=== PATIENT | male | born 1970 | race Caucasian/White ===

== ENCOUNTER 2018-09-29 16:46 | Emergency (ER) | payer BC, OTHER ==
[2018-09-29] MEDS ORDERED: Ketorolac 60 MG/2 ML SDV IM ONE (17:39)
--- NOTE | 2018-09-29 17:41 | EDM.PDOC ---
ED HPI GENERAL MEDICAL PROBLEM - General Chief Complaint: Lower Extremity Injury/Pain Stated Complaint: TWISTED LEFT KNEE Time Seen by Provider: 09/29/18 17:35 Source of Information: Reports: Patient, Family, RN Notes Reviewed History Limitations: Reports: No Limitations - History of Present Illness INITIAL COMMENTS - FREE TEXT/NARRATIVE: 48-year-old gentleman presents emergency department today complaint of left knee pain, he thinks he may have injured himself at work possibly twisting on the last step while carrying some boxes. He knee is now warm to the touch she does have a significant amount of edema around the knee very difficult for him to bear weight and it is painful - Related Data Allergies Allergy/AdvReac Type Severity Reaction Status Date / Time No Known Allergies Allergy Verified 09/29/18 17:40 Home Meds: Home Meds NK [No Known Home Meds] 09/29/18 [History] Past Medical History - Past Health History Medical/Surgical History: Denies Medical/Surgical History Social & Family History - Tobacco Use Smoking Status *Q: Never Smoker Review of Systems - Review of Systems Review Of Systems: See Below Musculoskeletal: Reports: Joint Pain (Left knee) Skin: Reports: Pallor, Other (Edema) ED EXAM, GENERAL - Physical Exam Exam: See Below Free Text/Narrative:: Examination left knee he has limited range of motion secondary to pain but will not tolerate any type of exam he does have marked effusion around the knee it is warm to the touch pedal pulses +2 Exam Limited By: No Limitations General Appearance: Alert, WD/WN, No Apparent Distress ED TRAUMA EXTREMITY PROCEDURES - Additional/Other Procedure(s) Other (Free Text) Procedure(s): Preoperative diagnosis left knee effusion Postoperative diagnosis blood-tinged synovial fluid Surgeon Tk OfficerMD Verbal consent was obtained prior to procedure risks and benefits were discussed patient is in agreement and wishes to proceed. Anesthesia etholinechloride spray Estimated blood loss 5 mL Specimens 35 mL of fluid Summary procedure: Timeout was performed prior to initiation procedure identified correct site, correct patient and correct procedure. Patient was seated on the bedside sophie was identified over the joint effusion lateral aspect. Area was anesthetized with Betadine 3, next ethylene chloride spray was used to anesthetize the area, an 18-gauge needle was then inserted just underneath the skin to drain the fluid initially 5 mL of blood consistent with the traumatic effusion followed by 35 mL of fluid, Band-Aid was placed over the wound this was done in a sterile technique Complications none apparent Disposition plan is discharge home Course - Vital Signs Last Recorded V/S: Last Vital Signs Temp 97.0 F 09/29/18 17:44 Pulse 91 09/29/18 17:44 Resp 16 09/29/18 17:44 BP 133/96 H 09/29/18 17:44 Pulse Ox 96 09/29/18 17:44 - Orders/Labs/Meds Orders: Active Orders 24 hr Category Date Time Status CELL COUNT,BODY FLUID [BF] Stat Lab 09/29/18 19:33 Ordered CULTURE BODY FLUID + SMEAR [RM] Routine Lab 09/29/18 19:33 Results CULTURE BODY FLUID + SMEAR [RM] Stat Lab 09/29/18 19:33 Ordered Meds: Medications Discontinued Medications Generic Name Dose Route Start Last Admin Trade Name Samanq PRN Reason Stop Dose Admin Ketorolac Tromethamine 60 mg 09/29/18 17:39 09/29/18 17:49 Toradol IM 09/29/18 17:40 60 mg ONETIME ONE Administration Departure - Departure Time of Disposition: 20:22 Disposition: Home, Self-Care 01 Condition: Fair Clinical Impression: Effusion, left knee Left knee pain Qualifiers: Chronicity: acute Qualified Code(s): M25.562 - Pain in left knee - Discharge Information Instructions: Knee Effusion, [id number] Referrals: PCP,None [Primary Care Provider] - Forms: ED Department Discharge Additional Instructions: Watch for signs of infection, use Tylenol Motrin as needed for pain control, orthopedics will call you with an appointment time on Monday - My Orders Last 24 Hours: My Active Orders 09/29/18 19:33 CELL COUNT,BODY FLUID [BF] Stat CULTURE BODY FLUID + SMEAR [RM] Routine CULTURE BODY FLUID + SMEAR [RM] Stat - Assessment/Plan Last 24 Hours: My Active Orders 09/29/18 19:33 CELL COUNT,BODY FLUID [BF] Stat CULTURE BODY FLUID + SMEAR [RM] Routine CULTURE BODY FLUID + SMEAR [RM] Stat Plan: Assessment Acuity = acute Site and laterality = left knee joint effusion Etiology = secondary to trauma Manifestations = none Location of injury = Home Lab values = x-ray showed no acute process, joint aspiration fluid pending Plan Called discussed case with orthopedics on-call at 2019 recommended RICE at this time no antibiotics watch for fevers or increasing pain at that time would recommend further evaluation, keep follow-up appointment with orthopedics in clinic This note was dictated using [employer] voice recognition software please call with any questions on syntax or grammar.
--- NOTE | 2018-09-29 18:15 | CRLCR ---
INDICATION: Knee pain, twist injury TECHNIQUE: Knee radiograph 3 views left COMPARISON: None FINDINGS: Bone: No acute fractures or aggressive bone lesions are identified. Joint: The joint spaces of the medial, lateral, and patellofemoral compartments are unremarkable. No significant knee effusion is seen. Soft tissue: Severe anterior swelling and edema noted. No radiopaque foreign bodies are seen. IMPRESSION: 1. No acute osseous injuries or abnormalities are noted. Dictated by: Javi Pompa MD @ 09/29/2018 18:14:08 (Electronically Signed)
== END 2018-09-29 20:40 | disposition home or self-care (01) ==
LOC: JP.ED 16:46
DX: M25.462 Effusion, left knee (principal)
CPT/HCPCS: 20610; 73562; 87070; 87077; 87186; 87205; 89050; 96372; 99283; J1885

== ENCOUNTER 2018-10-01 06:53 | Inpatient (IN) | payer BC ==
[2018-10-01] MEDS ORDERED: Sodium Chloride 0.9% 10 ML Syringe FLUSH PRN ×2 (07:27→07:28)
[2018-10-01] MEDS ORDERED: Ondansetron 4 MG/2 ML SDV IVPUSH ONE (07:30)
[2018-10-01] MEDS ORDERED: Lactated Ringers 1,000 ML IV SCH ×2 (07:30→12:22)
[2018-10-01] MEDS ORDERED: cefTAZidime Pentahydrate 2 GM in Sodium Chloride 0.9% 50 ML IV SCH (07:30)
--- NOTE | 2018-10-01 07:32 | EDM.PDOC ---
ED HPI GENERAL MEDICAL PROBLEM - General Chief Complaint: Lower Extremity Injury/Pain Stated Complaint: left knee pain red and painful Time Seen by Provider: 10/01/18 07:22 Source of Information: Reports: Patient, Family, RN Notes Reviewed History Limitations: Reports: No Limitations - History of Present Illness INITIAL COMMENTS - FREE TEXT/NARRATIVE: 48-year-old gentleman presents emergency department today with complaint of painful red knee. I have the opportunity see him 2 days prior where he described an injury possibly stepping off the last step twisting injury he had a fusion on the knee x-ray at the time was negative Was bloody but did show about 13 wbc's with 90% polys. Discussed case with orthopedics because the white cell was less than 50,000 elected not to start antibiotics at this time and do watchful waiting with follow-up with orthopedics this week. I did well 2 days ago unfortunately last night developed chills no fever and the redness increased around the knee as well as the effusion Left Knee Pain Score (Numeric/FACES): 7 - Related Data Allergies Allergy/AdvReac Type Severity Reaction Status Date / Time No Known Allergies Allergy Verified 10/01/18 07:08 Home Meds: Home Meds Acetaminophen [Tylenol Extra Strength] 1,000 mg PO ASDIRECTED 10/01/18 [History] Ibuprofen [Motrin] 800 mg PO DAILY 10/01/18 [History] Past Medical History Musculoskeletal History: Reports: Fracture - Past Surgical History Musculoskeletal Surgical History: Reports: Other (See Below) Other Musculoskeletal Surgeries/Procedures:: tendon rupture Social & Family History - Tobacco Use Smoking Status *Q: Never Smoker - Alcohol Use Days Per Week of Alcohol Use: 2 Number of Drinks Per Day: 3 Total Drinks Per Week: 6 - Recreational Drug Use Recreational Drug Use: No Review of Systems - Review of Systems Review Of Systems: See Below Constitutional: Reports: Chills. Denies: Fever Respiratory: Reports: No Symptoms Cardiovascular: Reports: No Symptoms GI/Abdominal: Reports: Nausea Musculoskeletal: Reports: Joint Pain Skin: Reports: Pallor, Rash, Erythema ED EXAM, GENERAL - Physical Exam Exam: See Below Free Text/Narrative:: Examination of the left knee effusion has returned it is similar to when I examine him prior may be not as full erythema has advanced significantly both upper and lower extremity on the left side tenderness has improved he is not is is tender to palpation in 2 days ago it is warm to the touch, pedal pulses +2 there is edema into the lower extremity as well Exam Limited By: No Limitations General Appearance: Alert, WD/WN, No Apparent Distress Respiratory/Chest: No Respiratory Distress, Lungs Clear, Normal Breath Sounds, No Accessory Muscle Use, Chest Non-Tender Cardiovascular: Regular Rate, Rhythm, No Murmur GI/Abdominal: Soft, Non-Tender Course - Vital Signs Last Recorded V/S: Last Vital Signs Temp 96.8 F 10/01/18 07:04 Pulse 102 H 10/01/18 07:04 Resp 16 10/01/18 07:04 BP 138/94 H 10/01/18 07:04 Pulse Ox 94 L 10/01/18 07:04 - Orders/Labs/Meds Orders: Active Orders 24 hr Category Date Time Status Peripheral IV Care [RC] . DIRECTED Care 10/01/18 07:27 Active Peripheral IV Care [RC] . DIRECTED Care 10/01/18 07:28 Active Vital Signs [RC] Q1H Care 10/01/18 07:25 Active CULTURE BLOOD [BC] Urgent Lab 10/01/18 07:30 Received CULTURE BLOOD [BC] Urgent Lab 10/01/18 07:40 Received Lactated Ringers [Ringers, Lactated] 1,000 ml Med 10/01/18 07:30 Active IV ASDIRECTED Lactated Ringers [Ringers, Lactated] 1,000 ml Med 10/01/18 07:44 Active IV BOLUS Sodium Chloride 0.9% [Saline Flush] Med 10/01/18 07:27 Active 10 ml FLUSH ASDIRECTED PRN Vancomycin 1.5 gm Med 10/01/18 08:30 Active Sodium Chloride 0.9% [Normal Saline] 250 ml IV ONETIME cefTAZidime Pentahydrate [Fortaz] 2 gm Med 10/01/18 08:00 Active Sodium Chloride 0.9% [Normal Saline] 100 ml IV Q8H Blood Culture x2 Reflex Set [OM.PC] Urgent Oth 10/01/18 07:25 Ordered Peripheral IV Insertion Adult [OM.PC] Routine Oth 10/01/18 07:28 Ordered Peripheral IV Insertion Adult [OM.PC] Urgent Oth 10/01/18 07:27 Ordered Medication Orders Lactated Ringer's (Ringers, Lactated) 1,000 mls @ 999 mls/hr IV ASDIRECTED KEMI Last Admin: 10/01/18 07:43 Dose: 999 mls/hr Ceftazidime 2 gm/ Sodium (Chloride) 100 mls @ 200 mls/hr IV Q8H [facility] Last Admin: 10/01/18 07:46 Dose: 200 mls/hr Vancomycin HCl 1.5 gm/ Sodium (Chloride) 250 mls @ 150 mls/hr IV ONETIME ONE Stop: 10/01/18 10:09 Lactated Ringer's (Ringers, Lactated) 1,000 mls @ 999 mls/hr IV BOLUS ONE Stop: 10/01/18 08:44 Last Admin: 10/01/18 07:50 Dose: 999 mls/hr Sodium Chloride (Saline Flush) 10 ml FLUSH ASDIRECTED PRN PRN Reason: Keep Vein Open Last Admin: 10/01/18 07:43 Dose: 10 ml Labs: Laboratory Tests 10/01/18 10/01/18 10/01/18 Range/Units 07:31 07:31 07:31 WBC 11.1 H (4.5-11.0) K/uL RBC 5.67 (4.30-5.90) M/uL Hgb 16.4 H (12.0-15.0) g/dL Hct 49.1 (40.0-54.0) % MCV 87 (80-98) fL MCH 29 (27-31) pg MCHC 33 (32-36) % Plt Count 189 (150-400) K/uL Neut % (Auto) 83 H (36-66) % Lymph % (Auto) 10 L (24-44) % [place]er % (Auto) 6 (2-6) % Eos % (Auto) 1 L (2-4) % Baso % (Auto) 0 (0-1) % Sodium 141 (140-148) mmol/L Potassium 4.1 (3.6-5.2) mmol/L Chloride 109 H (100-108) mmol/L Carbon Dioxide 26 (21-32) mmol/L Anion Gap 10.1 (5.0-14.0) mmol/L BUN 16 (7-18) mg/dL Creatinine 1.3 (0.8-1.3) mg/dL Est Cr Clr Drug Dosing 68.74 mL/min Estimated GFR (MDRD) 59 L (>60) Glucose 110 H (74-106) mg/dL Lactic Acid 1.5 (0.4-2.0) mmol/L Calcium 8.6 (8.5-10.1) mg/dL Total Bilirubin 0.4 (0.2-1.0) mg/dL AST 20 (15-37) U/L ALT 53 (12-78) U/L Alkaline Phosphatase 50 (46-116) U/L C-Reactive Protein 0.58 H (0.0-0.3) mg/dL Total Protein 7.0 (6.4-8.2) g/dL Albumin 3.9 (3.4-5.0) g/dL Globulin 3.1 (2.3-3.5) g/dL Albumin/Globulin Ratio 1.3 (1.2-2.2) Meds: Medications Generic Name Dose Route Start Last Admin Trade Name Freq PRN Reason Stop Dose Admin Lactated Ringer's 1,000 mls @ 999 mls/hr 10/01/18 07:30 10/01/18 07:43 Ringers, Lactated IV 999 mls/hr ASDIRECTED KEMI Administration Ceftazidime 2 gm/ Sodium 100 mls @ 200 mls/hr 10/01/18 08:00 10/01/18 07:46 Chloride IV 200 mls/hr Q8H KEMI Administration Vancomycin HCl 1.5 gm/ Sodium 250 mls @ 150 mls/hr 10/01/18 08:30 Chloride IV 10/01/18 10:09 ONETIME ONE Lactated Ringer's 1,000 mls @ 999 mls/hr 10/01/18 07:44 10/01/18 07:50 Ringers, Lactated IV 10/01/18 08:44 999 mls/hr BOLUS ONE Administration Sodium Chloride 10 ml 10/01/18 07:27 10/01/18 07:43 Saline Flush FLUSH 10 ml ASDIRECTED PRN Administration Keep Vein Open Discontinued Medications Generic Name Dose Route Start Last Admin Trade Name Freq PRN Reason Stop Dose Admin Ondansetron HCl 4 mg 10/01/18 07:30 Zofran IVPUSH 10/01/18 07:31 ONETIME ONE Sodium Chloride 10 ml 10/01/18 07:28 Saline Flush FLUSH ASDIRECTED PRN Keep Vein Open Departure - Departure Time of Disposition: 08:14 Disposition: Admitted As Inpatient 65 Condition: Fair Clinical Impression: Cellulitis of left leg Septic arthritis Qualifiers: Septic arthritis location: knee Septic arthritis organism: staphylococcal Laterality: left Qualified Code(s): M00.062 - Staphylococcal arthritis, left knee - Discharge Information Referrals: PCP,None [Primary Care Provider] - Forms: ED Department Discharge - My Orders Last 24 Hours: My Active Orders 10/01/18 07:25 Vital Signs [RC] Q1H Blood Culture x2 Reflex Set [OM.PC] Urgent 10/01/18 07:27 Peripheral IV Care [RC] . DIRECTED Sodium Chloride 0.9% [Saline Flush] 10 ml FLUSH ASDIRECTED PRN Peripheral IV Insertion Adult [OM.PC] Urgent 10/01/18 07:28 Peripheral IV Care [RC] . DIRECTED Peripheral IV Insertion Adult [OM.PC] Routine 10/01/18 07:30 CULTURE BLOOD [BC] Urgent Lactated Ringers [Ringers, Lactated] 1,000 ml IV ASDIRECTED 10/01/18 07:40 CULTURE BLOOD [BC] Urgent 10/01/18 07:44 Lactated Ringers [Ringers, Lactated] 1,000 ml IV BOLUS 10/01/18 08:00 cefTAZidime Pentahydrate [Fortaz] 2 gm Sodium Chloride 0.9% [Normal Saline] 100 ml IV Q8H 10/01/18 08:30 Vancomycin 1.5 gm Sodium Chloride 0.9% [Normal Saline] 250 ml IV ONETIME - Assessment/Plan Last 24 Hours: My Active Orders 10/01/18 07:25 Vital Signs [RC] Q1H Blood Culture x2 Reflex Set [OM.PC] Urgent 10/01/18 07:27 Peripheral IV Care [RC] . DIRECTED Sodium Chloride 0.9% [Saline Flush] 10 ml FLUSH ASDIRECTED PRN Peripheral IV Insertion Adult [OM.PC] Urgent 10/01/18 07:28 Peripheral IV Care [RC] . DIRECTED Peripheral IV Insertion Adult [OM.PC] Routine 10/01/18 07:30 CULTURE BLOOD [BC] Urgent Lactated Ringers [Ringers, Lactated] 1,000 ml IV ASDIRECTED 10/01/18 07:40 CULTURE BLOOD [BC] Urgent 10/01/18 07:44 Lactated Ringers [Ringers, Lactated] 1,000 ml IV BOLUS 10/01/18 08:00 cefTAZidime Pentahydrate [Fortaz] 2 gm Sodium Chloride 0.9% [Normal Saline] 100 ml IV Q8H 10/01/18 08:30 Vancomycin 1.5 gm Sodium Chloride 0.9% [Normal Saline] 250 ml IV ONETIME Plan: Assessment Acuity = acute Site and laterality = left knee septic arthritis with local cellulitis left leg Etiology = staph aureus Manifestations = pain, effusion, chills Location of injury = Home Lab values = CBC unremarkable CMP unremarkable lactic acid is 1.5 normal limits CRP slightly elevated 0.58, cultures from 2 days prior are showing staph aureus sensitivities are pending Plan Discussed case with Dr. Cazares at [phone] agreed to evaluate patient for possible surgical intervention called discussed case with hospitalist on-call at [phone] he agreed to come and evaluate the patient in the emergency department for admission. Blood cultures are pending antibiotics of Fortaz and vancomycin have been initiated as well as 2 L of fluid lactated Ringer's This note was dictated using [employer] voice recognition software please call with any questions on syntax or grammar.
[2018-10-01] MEDS ORDERED: Lactated Ringers 1,000 ML IV ONE (07:44)
--- NOTE | 2018-10-01 09:13 | PCM.HP.2 ---
H&P History of Present Illness - General Date of Service: 10/01/18 Admit Problem/Dx: Admission Diagnosis/Problem Admission Diagnosis/Problem Septic arthritis Source of Information: Patient, Family, Provider History Limitations: Reports: No Limitations - History of Present Illness Initial Comments - Free Text/Narative: CC: I have the chills HPI: Ramon presents to the emergency room today with chills that started last night before bed. He reports injuring his knee on Monday night, 3 nights ago with a gentle twisting motion. He had very mild pain but was able to continue working. He woke up Monday morning with moderate pain and stiffness as well as swelling of the left knee. He came to the emergency room and had an x-ray which did not reveal a fracture. An effusion was noted and this was tapped. White blood cell count was less than 50,000 and the effusion was bloody. Antibiotics were not initiated after discussion with orthopedics because of the low white blood cell count. Pain was controlled using Tylenol and acetaminophen over the next couple of days. He did not have any fevers over the next 24 hours but last night to develop shaking chills. This morning he had redness that had extended from over the knee most of the way up the thigh and fci down his hol[place]. He is currently complaining of mild achy pain involving the knee. He has been using the acetaminophen and ibuprofen with good relief. Moving around does make the knee hurt worse. Cultures from the emergency room visit on Monday were reviewed and are growing what appears to be staph aureus with final identification and sensitivities still pending. Surgical intervention is planned for joint washout. There is no family history of difficulty with anesthesia and no personal history of difficulty with anesthesia. Left Knee Pain Score (Numeric/FACES): 7 - Related Data Allergies/Adverse Reactions: Allergies Allergy/AdvReac Type Severity Reaction Status Date / Time No Known Allergies Allergy Verified 10/01/18 07:08 Home Medications: Home Meds Acetaminophen [Tylenol Extra Strength] 1,000 mg PO ASDIRECTED 10/01/18 [History] Ibuprofen [Motrin] 800 mg PO DAILY 10/01/18 [History] Past Medical History Musculoskeletal History: Reports: Fracture - Past Surgical History Musculoskeletal Surgical History: Reports: Other (See Below) Other Musculoskeletal Surgeries/Procedures:: tendon rupture Social & Family History - Family History Other Family History: No family history of difficulty with anesthesia - Tobacco Use Smoking Status *Q: Never Smoker - Alcohol Use Days Per Week of Alcohol Use: 2 Number of Drinks Per Day: 3 Total Drinks Per Week: 6 - Recreational Drug Use Recreational Drug Use: No H&P Review of Systems - Review of Systems: Review Of Systems: See Below Free Text/Narrative: A complete 12 point review of systems was obtained. Pertinent positives and negatives are noted in the history of present illness. All other systems were reviewed and were negative except as noted. Exam - Exam Exam: See Below - Vital Signs Vital Signs: Last Vital Signs Temp 36.6 C 10/01/18 08:00 Pulse 87 10/01/18 08:00 Resp 14 10/01/18 08:00 BP 132/86 10/01/18 08:00 Pulse Ox 97 10/01/18 08:00 Weight: 97.522 kg - Exam Quality Assessment: No: Supplemental Oxygen General: Alert, Oriented, Cooperative. No: Mild Distress HEENT: Conjunctiva Clear, Mucosa Moist & [place]. No: Scleral Icterus Neck: Supple, Trachea Midline. No: Lymphadenopathy Lungs: Clear to Auscultation, Normal Respiratory Effort Cardiovascular: Regular Rate, Regular Rhythm. No: Systolic Murmur GI/Abdominal Exam: Normal Bowel Sounds, Soft, Non-Tender, No Distention Back Exam: Normal Inspection, Full Range of Motion Extremities: Pedal Edema (Mild involving left leg), Joint Swelling (Left knee), Increased Warmth (Left anterior thigh, left knee and left upper holland) Peripheral Pulses: 2+: Dorsalis Pedis (L), Dorsalis Pedis (R) Skin: Warm, Dry, Rash (Erythema involving the anterior aspect of the left mid to lower thigh as well as the left knee and upper portion of the left lower extremity from knee to mid holland) Neuro Extensive - Mental Status: Alert, Oriented x3, Nl Response to Commands Neuro Extensive - Motor, Sensory, Reflexes: CN II-XII Intact. No: Dysarthria, Abnormal Motor Psychiatric: Alert, Normal Affect - Patient Data Lab Results Last 24 hrs: Laboratory Results - last 24 hr 10/01/18 10/01/18 10/01/18 Range/Units 07:31 07:31 07:31 WBC 11.1 H (4.5-11.0) K/uL RBC 5.67 (4.30-5.90) M/uL Hgb 16.4 H (12.0-15.0) g/dL Hct 49.1 (40.0-54.0) % MCV 87 (80-98) fL MCH 29 (27-31) pg MCHC 33 (32-36) % Plt Count 189 (150-400) K/uL Neut % (Auto) 83 H (36-66) % Lymph % (Auto) 10 L (24-44) % [place] % (Auto) 6 (2-6) % Eos % (Auto) 1 L (2-4) % Baso % (Auto) 0 (0-1) % Sodium 141 (140-148) mmol/L Potassium 4.1 (3.6-5.2) mmol/L Chloride 109 H (100-108) mmol/L Carbon Dioxide 26 (21-32) mmol/L Anion Gap 10.1 (5.0-14.0) mmol/L BUN 16 (7-18) mg/dL Creatinine 1.3 (0.8-1.3) mg/dL Est Cr Clr Drug Dosing 68.74 mL/min Estimated GFR (MDRD) 59 L (>60) Glucose 110 H (74-106) mg/dL Lactic Acid 1.5 (0.4-2.0) mmol/L Calcium 8.6 (8.5-10.1) mg/dL Total Bilirubin 0.4 (0.2-1.0) mg/dL AST 20 (15-37) U/L ALT 53 (12-78) U/L Alkaline Phosphatase 50 (46-116) U/L C-Reactive Protein 0.58 H (0.0-0.3) mg/dL Total Protein 7.0 (6.4-8.2) g/dL Albumin 3.9 (3.4-5.0) g/dL Globulin 3.1 (2.3-3.5) g/dL Albumin/Globulin Ratio 1.3 (1.2-2.2) Result Diagrams: 10/01/18 07:31 10/01/18 07:31 Imaging Impressions Last 24 hrs: The knee x-ray from 09/29 was personally reviewed - no evidence for fracture. Obvious large effusion involving the left knee was noted. *Q Meaningful Use (ADM) - VTE *Q VTE Pharmacological Contraindications *Q: Patient Scheduled Surgery - VTE Risk Assess *Q Each Risk Factor Represents 1 Point: Age 41 - 59 years, Obesity ( BMI > 25 kg/m2 ) Total Score 1 Point Risk Factors: 2 Each Risk Factor Represents 2 Points: None Total Score 2 Point Risk Factors: 0 Each Risk Factor Represents 3 Points: None Total Score 3 Point Risk Factors: 0 Each Risk Factor Represents 5 Points: None Total Score 5 Point Risk Factors: 0 Venous Thromboembolism Risk Factor Score *Q: 2 - Problem List (1) Septic arthritis SNOMED Code(s): 289576671 ICD Code: M00.9 - PYOGENIC ARTHRITIS, UNSPECIFIED Status: Acute Current Visit: Yes Qualifiers: Septic arthritis location: knee Septic arthritis organism: staphylococcal Laterality: left Qualified Code(s): M00.062 - Staphylococcal arthritis, left knee (2) Cellulitis of left leg SNOMED Code(s): 053999165 ICD Code: L03.116 - CELLULITIS OF LEFT LOWER LIMB Status: Acute Current Visit: Yes Problem List Initiated/Reviewed/Updated: Yes Orders Last 24hrs: Active Orders 24 hr Category Date Time Status Patient Status Manage Transfer [TRANSFER] Routine ADT 10/01/18 09:02 Ordered Peripheral IV Care [RC] . DIRECTED Care 10/01/18 07:27 Active Peripheral IV Care [RC] . DIRECTED Care 10/01/18 07:28 Active Vital Signs [RC] Q1H Care 10/01/18 07:25 Active CULTURE BLOOD [BC] Urgent Lab 10/01/18 07:30 Received CULTURE BLOOD [BC] Urgent Lab 10/01/18 07:40 Received Lactated Ringers [Ringers, Lactated] 1,000 ml Med 10/01/18 07:30 Active IV ASDIRECTED Sodium Chloride 0.9% [Saline Flush] Med 10/01/18 07:27 Active 10 ml FLUSH ASDIRECTED PRN Vancomycin 1.5 gm Med 10/01/18 08:30 Active Sodium Chloride 0.9% [Normal Saline] 250 ml IV ONETIME cefTAZidime Pentahydrate [Fortaz] 2 gm Med 10/01/18 08:00 Active Sodium Chloride 0.9% [Normal Saline] 100 ml IV Q8H Blood Culture x2 Reflex Set [OM.PC] Urgent Oth 10/01/18 07:25 Ordered Peripheral IV Insertion Adult [OM.PC] Routine Oth 10/01/18 07:28 Ordered Peripheral IV Insertion Adult [OM.PC] Urgent Oth 10/01/18 07:27 Ordered Resuscitation Status Routine Resus Stat 10/01/18 09:03 Ordered Medication Orders Lactated Ringer's (Ringers, Lactated) 1,000 mls @ 999 mls/hr IV ASDIRECTED [facility] Last Admin: 10/01/18 07:43 Dose: 999 mls/hr Ceftazidime 2 gm/ Sodium (Chloride) 100 mls @ 200 mls/hr IV Q8H [facility] Last Admin: 10/01/18 07:46 Dose: 200 mls/hr Vancomycin HCl 1.5 gm/ Sodium (Chloride) 250 mls @ 150 mls/hr IV ONETIME ONE Stop: 10/01/18 10:09 Last Admin: 10/01/18 08:22 Dose: 150 mls/hr Sodium Chloride (Saline Flush) 10 ml FLUSH ASDIRECTED PRN PRN Reason: Keep Vein Open Last Admin: 10/01/18 07:43 Dose: 10 ml Assessment/Plan Comment:: ASSESSMENT AND PLAN - Septic arthritis of left knee with cellulitis - no obvious portal of entry for bacteria. Culture from 2 days ago is growing staph aureus but sensitivities are not available. Patient has developed chills. He does not appear to be septic at this time. Case discussed with orthopedics and washout of the left knee was recommended. Patient is healthy and active and has no contraindication to surgery. He has received broad-spectrum antibiotics in the emergency room. -Continue vancomycin and ceftazidime until cultures are final -Orthopedic consultation with surgical intervention planned later in the morning -Pain control -Follow-up cultures Maintenance issues - - DVT prophylaxis - mechanical - GI prophylaxis - Not indicated - Nutrition - Nothing by mouth until after surgery - [place] catheter - Not indicated CODE STATUS - Full code Admission justification - This patient will be admitted for inpatient services and is medically appropriate meeting medical necessity for inpatient admission as outlined in my documentation. I reasonably expect the patient will require inpatient services that span a period time over 2 midnights. I reasonably expect this patient to be discharged or transferred within 96 hours after admission to the [facility]. Disposition - I would anticipate discharge home after the hospital stay Charanjit Villalpando M.D. - Mortality Measure Prognosis:: Good
[2018-10-01] MEDS ORDERED: Bupivacaine 0.5% 30 ML SDV ONE (09:25)
[2018-10-01] MEDS ORDERED: Dexamethasone 4 MG/ML SDV ONE (09:33)
[2018-10-01] MEDS ORDERED: Glycopyrrolate 0.2 MG/ML 5 ML MDV ONE (09:33)
[2018-10-01] MEDS ORDERED: fentaNYL 250 MCG/5 ML SDV ONE (09:33)
[2018-10-01] MEDS ORDERED: Succinylcholine 200 MG/10 ML MDV ONE (09:33)
[2018-10-01] MEDS ORDERED: Propofol 200 MG/20 ML SDV ONE (09:33)
[2018-10-01] MEDS ORDERED: Rocuronium 50 MG/5 ML Vial ONE (09:33)
[2018-10-01] MEDS ORDERED: Neostigmine Methylsulfate 1 MG/ML 5 ML Syringe ONE (09:33)
[2018-10-01] MEDS ORDERED: Ondansetron 4 MG/2 ML SDV ONE (09:33)
[2018-10-01] MEDS ORDERED: Lactated Ringers 1,000 ML ONE (10:11)
[2018-10-01] MEDS ORDERED: Povidone-Iodine 10% Soln 118.25 ML Bottle ONE (10:29)
[2018-10-01] MEDS ORDERED: fentaNYL 100 MCG/2 ML SDV ONE (10:32)
[2018-10-01] MEDS ORDERED: Acetaminophen 325 MG Tab PO PRN ×2 (10:54→12:22)
[2018-10-01] MEDS ORDERED: Acetaminophen/HYDROcodone 325-5 MG Tab PO PRN (10:54)
[2018-10-01] MEDS ORDERED: Morphine 2 MG/ML Syringe IVPUSH PRN (10:54)
[2018-10-01] MEDS ORDERED: Ondansetron 4 MG Tab.DIS PO PRN (12:22)
[2018-10-01] MEDS ORDERED: Ibuprofen 600 MG Tab PO PRN (12:22)
[2018-10-01] MEDS ORDERED: LORazepam 2 MG/ML SDV IVPUSH PRN (12:22)
[2018-10-01] MEDS ORDERED: Magnesium Hydroxide 400 MG/5 ML Susp 30 ML Cup PO PRN (12:22)
[2018-10-01] MEDS ORDERED: oxyCODONE 5 MG Tab PO PRN (12:22)
[2018-10-01] MEDS ORDERED: Ondansetron 4 MG/2 ML SDV IV PRN (12:22)
[2018-10-01] MEDS: Acetaminophen/oxyCODONE 325-5 MG Tab PO PRN ×2 (13:17→21:11)
[2018-10-01] MEDS: Sodium Chloride 0.9% 1,000 ML IV SCH ×2 (13:35→23:07)
--- NOTE | 2018-10-01 15:20 | PCM.CONS ---
H&P History of Present Illness - General Date of Service: 10/01/18 Admit Problem/Dx: Admission Diagnosis/Problem Admission Diagnosis/Problem Septic arthritis Source of Information: Patient, Provider History Limitations: Reports: No Limitations - History of Present Illness Initial Comments - Free Text/Narative: 48 year old with left knee pain admitted thru the ED. Progressive pain, redness and warmth since Monday. Had mild twisting injury at work on Monday, initial evaluation in the ED was questionable for septic joint. Began having chills last night and noted significant erythema in knee and spreading into thigh and lower leg. Admitted for IV antibiotics and irrigation. Onset of Symptoms: Reports: Sudden Symptom Onset Date: 09/28/18 Quality: Reports: Throbbing Severity: Severe Improves with: Reports: Rest Worsens with: Reports: Movement Associated Symptoms: Reports: Fever/Chills Left Knee Pain Score (Numeric/FACES): 5 - Related Data Allergies/Adverse Reactions: Allergies Allergy/AdvReac Type Severity Reaction Status Date / Time No Known Allergies Allergy Verified 10/01/18 07:08 Home Medications: Home Meds Acetaminophen [Tylenol Extra Strength] 1,000 mg PO ASDIRECTED 10/01/18 [History] Ibuprofen [Motrin] 800 mg PO DAILY 10/01/18 [History] Past Medical History Musculoskeletal History: Reports: Fracture - Infectious Disease History Infectious Disease History: Reports: Chicken Pox - Past Surgical History Musculoskeletal Surgical History: Reports: Other (See Below) Other Musculoskeletal Surgeries/Procedures:: tendon rupture Social & Family History - Family History Family Medical History: Noncontributory Other Family History: No family history of difficulty with anesthesia - Tobacco Use Smoking Status *Q: Never Smoker - Caffeine Use Caffeine Use: Reports: Coffee - Alcohol Use Days Per Week of Alcohol Use: 1 Number of Drinks Per Day: 3 Total Drinks Per Week: 3 Date of Last Drink: 09/29/18 Time of Last Drink: 21:00 - Recreational Drug Use Recreational Drug Use: No H&P Review of Systems - Review of Systems: Review Of Systems: See Below General: Reports: Chills HEENT: Reports: No Symptoms Pulmonary: Reports: No Symptoms Cardiovascular: Reports: No Symptoms Gastrointestinal: Reports: No Symptoms Genitourinary: Reports: No Symptoms Musculoskeletal: Reports: Leg Pain Skin: Reports: No Symptoms Psychiatric: Reports: No Symptoms Neurological: Reports: No Symptoms Hematologic/Lymphatic: Reports: No Symptoms Immunologic: Reports: No Symptoms Exam - Exam Exam: See Below - Vital Signs Vital Signs: Last Vital Signs Temp 35.4 C 10/01/18 13:32 Pulse 90 10/01/18 13:32 Resp 16 10/01/18 13:32 BP 117/81 10/01/18 13:32 Pulse Ox 97 10/01/18 13:32 Weight: 97.522 kg - Exam General: Alert, Oriented, 4 Extremities: Joint Swelling, Limited Range of Motion, Increased Warmth, Redness , Other (swelling in prepatellar bursa) Skin: Warm, Other (no wounds or drainage) Neurological: Cranial Nerves Intact, Reflexes Equal Bilateral Neuro Extensive - Mental Status: Alert, Oriented x3, Normal Mood/Affect, Normal Cognition Neuro Extensive - Motor, Sensory, Reflexes: CN II-XII Intact, Normal Gait, Normal Reflexes Psychiatric: Alert, Normal Affect, Normal Mood - Patient Data Lab Results Last 24 hrs: Laboratory Results - last 24 hr 10/01/18 10/01/18 10/01/18 Range/Units 07:31 07:31 07:31 WBC 11.1 H (4.5-11.0) K/uL RBC 5.67 (4.30-5.90) M/uL Hgb 16.4 H (12.0-15.0) g/dL Hct 49.1 (40.0-54.0) % MCV 87 (80-98) fL MCH 29 (27-31) pg MCHC 33 (32-36) % Plt Count 189 (150-400) K/uL Neut % (Auto) 83 H (36-66) % Lymph % (Auto) 10 L (24-44) % [place] % (Auto) 6 (2-6) % Eos % (Auto) 1 L (2-4) % Baso % (Auto) 0 (0-1) % Sodium 141 (140-148) mmol/L Potassium 4.1 (3.6-5.2) mmol/L Chloride 109 H (100-108) mmol/L Carbon Dioxide 26 (21-32) mmol/L Anion Gap 10.1 (5.0-14.0) mmol/L BUN 16 (7-18) mg/dL Creatinine 1.3 (0.8-1.3) mg/dL Est Cr Clr Drug Dosing 68.74 mL/min Estimated GFR (MDRD) 59 L (>60) Glucose 110 H (74-106) mg/dL Lactic Acid 1.5 (0.4-2.0) mmol/L Calcium 8.6 (8.5-10.1) mg/dL Total Bilirubin 0.4 (0.2-1.0) mg/dL AST 20 (15-37) U/L ALT 53 (12-78) U/L Alkaline Phosphatase 50 (46-116) U/L C-Reactive Protein 0.58 H (0.0-0.3) mg/dL Total Protein 7.0 (6.4-8.2) g/dL Albumin 3.9 (3.4-5.0) g/dL Globulin 3.1 (2.3-3.5) g/dL Albumin/Globulin Ratio 1.3 (1.2-2.2) Result Diagrams: 10/01/18 07:31 10/01/18 07:31 Prem Results Last 24 hrs: Microbiology 10/01/18 10:18 Gram Stain - Final Bursa - Knee, Left Consult PN Assessment/Plan (1) Septic prepatellar bursitis of left knee SNOMED Code(s): 24389102, 929953405 Code(s): M71.162 - OTHER INFECTIVE BURSITIS, LEFT KNEE Current Visit: Yes (2) Cellulitis of left leg SNOMED Code(s): 461281288 Code(s): L03.116 - CELLULITIS OF LEFT LOWER LIMB Current Visit: Yes (3) Left knee pain SNOMED Code(s): 56427686 Code(s): M25.562 - PAIN IN LEFT KNEE Current Visit: No Qualifiers: Chronicity: acute Qualified Code(s): M25.562 - Pain in left knee Problem List Initiated/Reviewed/Updated: Yes My Orders Last 24 Hours: My Active Orders 10/01/18 10:18 CULTURE ANAEROBIC [RM] Routine CULTURE WOUND + SMEAR [RM] Routine 10/01/18 10:54 Patient Status [ADT] Routine Ambulate [RC] QID Head of Bed Elevation [RC] ASDIRECTED Intake and Output [RC] QSHIFT Pneumonia Education [RC] UPON RT Incentive Spirometry [RC] Q1HWA Up to Chair [RC] QID Wound Care [RC] Q12H 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 [CONS] Routine PT Evaluation and Treatment [CONS] Routine Acetaminophen/HYDROcodone [[place] 325-5 MG] 1 tab PO Q3H PRN Acetaminophen/oxyCODONE [Percocet 325-5 MG] 2 tab PO Q4H PRN Morphine 1 mg IVPUSH Q2H PRN DVT/VTE Prophylaxis Reflex [OM.PC] Routine Ice Therapy [OM.PC] Per Unit Routine Medication Continuation Instructions [OM.PC] Per Unit Routine Oral Care [OM.PC] Routine 10/01/18 10:55 Antiembolic Devices [RC] .Routine VTE/DVT Education [RC] Click to Edit 10/01/18 10:56 Neurovascular Check [RC] QSHIFT 10/01/18 11:00 Sodium Chloride 0.9% [Normal Saline] 1,000 ml IV ASDIRECTED 10/01/18 Dinner Regular Diet [DIET] Plan: Plan admission for IV antibiotics, broad spectrum until infecting agent identified, and irrigation of knee. Suspect that he has a septic bursa with surrounding cellulitis and possible septic joint. Exam and CRP of 0.58 more consistent with infected bursa than knee joint. Will take to the OR for incision, drainage and irrigation of bursa and arthroscopic irrigation of knee if indicated. Additional cultures will be taken.
[2018-10-01] MEDS: Lactobacillus Rhamnosus GG (Probiotic) Cap PO SCH (21:12)
--- NOTE | 2018-10-02 00:30 | OR ---
DATE OF PROCEDURE: 10/01/2018 PREOPERATIVE DIAGNOSIS: Septic prepatellar bursa, left knee, possible septic knee joint. POSTOPERATIVE DIAGNOSIS: Septic prepatellar bursa, left knee. PROCEDURE PERFORMED: Incision, drainage and irrigation of prepatellar bursa, left knee. ANESTHESIA: General. INDICATIONS: Mr. Edwards is a 48-year-old gentleman admitted to the emergency room with a red swollen left knee. He has had progressive cellulitis in the leg over the past 24 hours. He is now admitted for IV antibiotics and washout of prepatellar bursa and possible septic knee joint. Risks, benefits, and potential complications of the procedure were discussed. DESCRIPTION OF PROCEDURE: After adequate anesthesia was obtained, the patient was placed supine with a tourniquet about the left upper leg. Leg was prepped and draped in a sterile fashion. Leg was elevated and tourniquet inflated to 300 mmHg. A small stab incision was made just medial of midline through the skin into the prepatellar bursa. This allowed immediate release of a serosanguineous fluid. This was not grossly purulent. Cultures were taken from inside the prepatellar bursa. The scope introducer was then used to irrigate the prepatellar bursa, which had dissected quite extensively around the patella down to the level of the tibial tubercle and lateral for quite some distance as well as superior to the patella. This was thoroughly irrigated. The incision was enlarged somewhat and a Ray-Pita sponge was introduced. This was returned without grossly purulent material from the bursa. Irrigation with normal saline continued. Once this was thoroughly irrigated and decompressed, the knee joint could be palpated and there was no appreciable effusion within the joint itself. Spinal needle was advanced medially into the suprapatellar pouch up away from the active infection. Attempt was made to aspirate the joint and no significant fluid was present for aspiration indicating infection was isolated to the prepatellar bursa. The knee joint itself was not opened as this would have expose the knee joint to the infection. The bursa was then irrigated with Betadine solution and then further irrigated with normal saline for a total of 6 L. A drain was placed and brought out through a separate stab incision laterally. This was cut and left within the space and the incision was then closed with 3-0 Monocryl and Steri-Strips. The drain was secured with a Tegaderm and 2 additional Steri-Strips. A light compressive dressing was then applied. The patient tolerated the procedure very well. There were no complications. He was taken from the operating room in stable condition. Jeramy Cazares MD /[id number] MTDD
[2018-10-02] MEDS: Sodium Chloride 0.9% 1,000 ML IV SCH (07:40)
[2018-10-02] MEDS: Lactobacillus Rhamnosus GG (Probiotic) Cap PO SCH (08:32)
[2018-10-02] MEDS ORDERED: Ibuprofen 800 MG Tab PO PRN (09:30)
[2018-10-02] MEDS ORDERED: Sodium Chloride 0.9% 1,000 ML IV SCH (10:00)
[2018-10-02] MEDS ORDERED: Sulfamethoxazole/Trimethoprim 800-160 MG Tab PO SCH (12:30)
--- NOTE | 2018-10-02 14:02 | PCM.DCSUM1 ---
Discharge Summary - Hospital Course Brief History: Healthy 48-year-old male who presented with left knee swelling as well as erythema and warmth spreading from the knee proximally and distally. He is admitted for further management with concern for septic arthritis. Diagnosis: Stroke: No - Discharge Data Discharge Date: 10/02/18 Discharge Disposition: Home, Self-Care 01 Condition: Good - Discharge Diagnosis/Problem(s) (1) Prepatellar bursitis of left knee SNOMED Code(s): 68692006 ICD Code: M70.42 - PREPATELLAR BURSITIS, LEFT KNEE Status: Acute Problem Details: Staph aureus (2) Cellulitis of left leg SNOMED Code(s): 736096760 ICD Code: L03.116 - CELLULITIS OF LEFT LOWER LIMB Status: Acute (3) Septic arthritis SNOMED Code(s): 545881787 ICD Code: M00.9 - PYOGENIC ARTHRITIS, UNSPECIFIED Status: Ruled-out Qualifiers: Septic arthritis location: knee Septic arthritis organism: staphylococcal Laterality: left Qualified Code(s): M00.062 - Staphylococcal arthritis, left knee - Patient Summary/Data Consults: Consultations 10/01/18 10:54 Consult to Case Management/Medical Administrative Technician [CONS] Routine Comment: Physician Instructions: Service(s) to be Consulted: Case Management Reason for Consult: Plan for Discharge PT Evaluation and Treatment [CONS] Routine Please Evaluate and Treat. PT Reason for Consult: Post op Ortho Surgery Pending Discharge: Yes Discharge Disposition: Home Special Instructions: WBAT on left This query below is only for informational purposes and is not editable. 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 This was a dramatic change from the night before. It was noted that he was seen 2 days prior in the emergency room for evaluation of a left knee effusion and pain. Cultures from the visit on Monday revealed that he was growing staph aureus. There was concern for septic arthritis. Orthopedics was consult that. He was started on broad-spectrum antibiotics and admitted to the hospital. Afternoon after admission he was taken to the operating room for arthroscopy. At this time it was discovered that he had an inflamed and septic prepatellar bursa. This was debris did and the joint was irrigated. Cultures were obtained at that time. After the arthroscopy septic bursitis was suspected rather than septic arthritis. Cultures from the arthrocentesis on Monday, 2 days before presentation, grow out a pansensitive staph aureus. The broad- spectrum antibiotics were discontinued on the day of discharge and he was transitioned to Bactrim. He has been ambulating well and has minimal pain. The cellulitis persists but has improved a fair amount since the day of admission. The patient is safe for discharge to home at this time and is safe for outpatient management. He will be following up with orthopedics. At the time of presentation septic arthritis was suspected and the patient was admitted to inpatient status. After the arthroscopy was discovered that he had septic bursitis rather than arthritis. His condition has improved much more dramatically than expected and he is safe for discharge after only one day. - Patient Instructions Diet: Usual Diet as Tolerated Activity: As Tolerated, Full Weight Bearing Driving: May Drive Today Showering/Bathing: Shower in AM Notify Provider of: Fever, Increased Pain, Swelling and Redness, Drainage - Discharge Plan *PRESCRIPTION DRUG MONITORING PROGRAM REVIEWED*: No *COPY OF PRESCRIPTION DRUG MONITORING REPORT IN PATIENT YAMILEX: No Home Medications: Home Meds Acetaminophen [Tylenol Extra Strength] 1,000 mg PO ASDIRECTED 10/01/18 [History] Ibuprofen [Motrin] 800 mg PO DAILY 10/01/18 [History] Oxygen Therapy Mode: Room Air Referrals: PCP,None [Primary Care Provider] - Jeramy Cazares MD [Physician] - 10/09/18 11:30 am - Discharge Summary/Plan Comment DC Time >30 min.: No - Patient Data Vitals - Most Recent: Last Vital Signs Temp 35.7 C 10/02/18 11:10 Pulse 78 10/02/18 11:10 Resp 16 10/02/18 11:10 BP 114/77 10/02/18 11:10 Pulse Ox 94 L 10/02/18 11:10 Weight - Most Recent: 97.522 kg I&O - Last 24 hours: Intake & Output 0810/02/18 10/02/18 22:59 06:59 14:59 Intake Total 1480 2150 Output Total 330 15 Balance 1150 -15 2150 Lab Results - Last 24 hrs: Laboratory Results - last 24 hr 10/02/18 10/02/18 Range/Units 04:50 04:50 WBC 12.2 H (4.5-11.0) K/uL RBC 4.83 (4.30-5.90) M/uL Hgb 14.0 D (12.0-15.0) g/dL Hct 42.7 (40.0-54.0) % MCV 88 (80-98) fL MCH 29 (27-31) pg MCHC 33 (32-36) % Plt Count 166 (150-400) K/uL Sodium 139 L (140-148) mmol/L Potassium 4.4 (3.6-5.2) mmol/L Chloride 106 (100-108) mmol/L Carbon Dioxide 26 (21-32) mmol/L Anion Gap 11.4 (5.0-14.0) mmol/L BUN 12 (7-18) mg/dL Creatinine 1.2 (0.8-1.3) mg/dL Est Cr Clr Drug Dosing 74.21 mL/min Estimated GFR (MDRD) > 60 (>60) Glucose 133 H (74-106) mg/dL Calcium 8.3 L (8.5-10.1) mg/dL DUSTIN Results - Last 24 hrs: Microbiology 10/01/18 07:40 Aerobic Blood Culture - Preliminary Blood - Venous - Lab Draw NO GROWTH AFTER 1 DAY Anaerobic Blood Culture - Preliminary NO GROWTH AFTER 1 DAY 10/01/18 07:30 Aerobic Blood Culture - Preliminary Blood - Venous - Iv Start NO GROWTH AFTER 1 DAY Anaerobic Blood Culture - Preliminary NO GROWTH AFTER 1 DAY 10/01/18 10:18 Gram Stain - Final Bursa - Knee, Left Wound Culture - Preliminary Anaerobic Culture - Preliminary NO GROWTH AFTER 1 DAY Med Orders - Current: Current Medications Discontinued Medications Acetaminophen (Tylenol) 650 mg PO Q4H PRN PRN Reason: Pain/Fever Acetaminophen (Tylenol) 650 mg PO Q4H PRN PRN Reason: Pain (Mild 1-3)/fever Hydrocodone Bitart/Acetaminophen ([place] 325-5 Mg) 1 tab PO Q3H PRN PRN Reason: Pain (mild 1-3) Bupivacaine HCl (Marcaine 0.5%) Confirm Administered Dose 30 ml .ROUTE .K-MED ONE Stop: 10/01/18 09:26 Last Admin: 10/01/18 10:33 Dose: 20 ml Dexamethasone (Dexamethasone) Confirm Administered Dose 4 mg .ROUTE .K-MED ONE Stop: 10/01/18 09:34 Fentanyl (Sublimaze) Confirm Administered Dose 250 mcg .ROUTE .[facility] ONE Stop: 10/01/18 09:34 Fentanyl (Sublimaze) Confirm Administered Dose 100 mcg .ROUTE .[facility] ONE Stop: 10/01/18 10:33 Glycopyrrolate (Robinul) Confirm Administered Dose 1 mg .ROUTE .[facility] ONE Stop: 10/01/18 09:34 Lactated Ringer's (Ringers, Lactated) 1,000 mls @ 999 mls/hr IV ASDIRECTED [facility] Last Admin: 10/01/18 07:43 Dose: 999 mls/hr Ceftazidime 2 gm/ Sodium (Chloride) 100 mls @ 200 mls/hr IV Q8H [facility] Last Admin: 10/02/18 07:37 Dose: 200 mls/hr Vancomycin HCl 1.5 gm/ Sodium (Chloride) 250 mls @ 150 mls/hr IV ONETIME ONE Stop: 10/01/18 10:09 Last Admin: 10/01/18 08:22 Dose: 150 mls/hr Lactated Ringer's (Ringers, Lactated) 1,000 mls @ 999 mls/hr IV BOLUS ONE Stop: 10/01/18 08:44 Last Admin: 10/01/18 07:50 Dose: 999 mls/hr Lactated Ringer's (Ringers, Lactated) Confirm Administered Dose 1,000 mls @ as directed .ROUTE .K-MED ONE Stop: 10/01/18 10:12 Sodium Chloride (Normal Saline) 1,000 mls @ 125 mls/hr IV ASDIRECTED [facility] Last Admin: 10/02/18 07:40 Dose: 125 mls/hr Lactated Ringer's (Ringers, Lactated) 1,000 mls @ 125 mls/hr IV ASDIRECTED [facility] Vancomycin HCl 1.5 gm/ Sodium (Chloride) 250 mls @ 150 mls/hr IV Q12H [facility] Last Admin: 10/02/18 08:29 Dose: 150 mls/hr Sodium Chloride (Normal Saline) 1,000 mls @ 125 mls/hr IV ASDIRECTED [facility] Ibuprofen (Motrin) 800 mg PO Q6H PRN PRN Reason: Pain/Fever Last Admin: 10/01/18 19:33 Dose: 800 mg Ibuprofen (Motrin) 800 mg PO Q6H PRN PRN Reason: PAIN Lactobacillus Rhamnosus (Culturelle) 1 cap PO BID [facility] Last Admin: 10/02/18 08:32 Dose: 1 cap Lorazepam (Ativan) 0.5 mg IVPUSH Q4H PRN PRN Reason: Nausea/Vomiting Magnesium Hydroxide (Milk Of Magnesia) 30 ml PO Q12H PRN PRN Reason: Constipation Morphine Sulfate (Morphine) 1 mg IVPUSH Q2H PRN PRN Reason: Breakthrough Pain Neostigmine Methylsulfate (Neostigmine) Confirm Administered Dose 5 mg .ROUTE .STK-MED ONE Stop: 10/01/18 09:34 Ondansetron HCl (Zofran) 4 mg IVPUSH ONETIME ONE Stop: 10/01/18 07:31 Last Admin: 10/01/18 17:47 Dose: Not Given Ondansetron HCl (Zofran) Confirm Administered Dose 4 mg .ROUTE .STK-MED ONE Stop: 10/01/18 09:34 Ondansetron HCl (Zofran Odt) 4 mg PO Q6H PRN PRN Reason: Nausea able to take PO Ondansetron HCl (Zofran) 4 mg IV Q6H PRN PRN Reason: Nausea/Vomiting Oxycodone HCl (Oxycodone) 5 - 10 mg PO Q4H PRN PRN Reason: Pain Oxycodone/Acetaminophen (Percocet 325-5 Mg) 2 tab PO Q4H PRN PRN Reason: Pain Last Admin: 10/01/18 21:11 Dose: 1 tab Povidone Iodine (Betadine 10% Soln) Confirm Administered Dose 1 ml .ROUTE .STK- MED ONE Stop: 10/01/18 10:30 Last Admin: 10/01/18 10:32 Dose: 40 ml Propofol (Diprivan 20 Ml) Confirm Administered Dose 200 mg .ROUTE .STK-MED ONE Stop: 10/01/18 09:34 Rocuronium [place] (Zemuron) Confirm Administered Dose 50 mg .ROUTE .STK-MED ONE Stop: 10/01/18 09:34 Senna/Docusate Sodium (Senna Plus) 1 tab PO BID PRN PRN Reason: Constipation Last Admin: 10/02/18 08:35 Dose: 1 tab Sodium Chloride (Saline Flush) 10 ml FLUSH ASDIRECTED PRN PRN Reason: Keep Vein Open Last Admin: 10/01/18 07:43 Dose: 10 ml Sodium Chloride (Saline Flush) 10 ml FLUSH ASDIRECTED PRN PRN Reason: Keep Vein Open Succinylcholine Chloride (Quelicin) Confirm Administered Dose 200 mg .ROUTE .STK -MED ONE Stop: 10/01/18 09:34 Trimethoprim/Sulfamethoxazole (Septra Ds) 1 tab PO BID [facility] Last Admin: 10/02/18 12:51 Dose: 1 tab *Q Meaningful Use (DIS) - VTE *Q VTE Pharmacological Contraindications *Q: Patient Scheduled Surgery
== END 2018-10-02 13:10 | disposition home or self-care (01) | DRG 317 ==
LOC: JP.ED 06:53 → JP.SDS 09:02 → JP.MS 09:06 → OBSVTOIN 09:06 → UNDOADMOB 10:54 → JP.MS 10:54
PROVIDERS: ADMIT Internal Medicine; ATTEND Specialist
PROC: 0M9P00Z Drainage of Left Knee Bursa and Ligament with Drainage Device, Open Approach (ICD-10-PCS; principal; 2018-10-01)
PROC: 0SJD3ZZ Inspection of Left Knee Joint, Percutaneous Approach (ICD-10-PCS; 2018-10-01)
DX: M71.162 Other infective bursitis, left knee (principal); M00.062 Staphylococcal arthritis, left knee; L03.116 Cellulitis of left lower limb; B95.61 Methicillin susceptible Staphylococcus aureus infection as the cause of diseases classified elsewhere; Z79.899 Other long term (current) drug therapy
CPT/HCPCS: 36415; 80048; 80053; 83605; 85025; 85027; 86140; 87040; 87070; 87075; 87077; 87186; 87205; 96365; 96367; 97110-GP; 97116-GP; 97161-GP; 97530-GP; 99284-25; A9270-GY; J0330; J0713; J1100; J2405; J2704; J2710; J3010; J3370; J3490; J7030; J7050; J7120

== ENCOUNTER 2019-09-05 08:03 | Day surgery (SDC) | payer BC, OTHER ==
[2019-09-05] MEDS ORDERED: Propofol 200 MG/20 ML SDV ONE (08:39)
[2019-09-05] MEDS ORDERED: fentaNYL 100 MCG/2 ML SDV ONE (08:39)
[2019-09-05] MEDS ORDERED: Midazolam 1 MG/ML 2 ML SDV ONE (08:39)
[2019-09-05] MEDS ORDERED: Dextrose 5%-Lactated Ringers 1,000 ML IV SCH (08:45)
--- NOTE | 2019-09-10 15:18 | OR ---
DATE OF PROCEDURE: 09/05/2019 SURGEON: Christopher Harrison MD PREOPERATIVE DIAGNOSIS: Indication for screening colonoscopy. POSTOPERATIVE DIAGNOSIS: Uncomplicated left colonic diverticulosis. OPERATIVE PROCEDURE: Colonoscopy. ANESTHESIA: IV sedation. INDICATION FOR PROCEDURE: This is a 49-year-old presenting for initial colonoscopy. He has no family or personal history of colonic neoplasia. Plan is to proceed with a colonoscopy with biopsies and/or polypectomy as indicated. Potential risks including bleeding and perforation were discussed, and the patient wishes to proceed. DETAILS OF PROCEDURE: The patient was taken to the operating room and placed in a left lateral decubitus position. IV sedation was administered, after which the initial digital rectal exam was performed and was unremarkable. Colonoscope was then passed into the rectum with retroflexion revealing uncomplicated hemorrhoidal columns. Scope was eventually passed to the level of the cecum. The prep was quite good with only a small amount of liquid stool present. The scope went through that level. The patient was noted to have some uncomplicated left colonic diverticulosis. Otherwise, there were no areas of colitis. No polyps or other signs of neoplasia. The scope was then withdrawn, the above findings reconfirmed, and the procedure then concluded. The patient was taken to the recovery room in satisfactory condition. recurrent symptoms develop, the patient should have a repeat colonoscopy in roughly 10 years. Christopher Harrison MD /[id number]
== END 2019-09-05 11:06 | disposition home or self-care (01) ==
LOC: JP.SDS 08:03
PROVIDERS: ATTEND Surgery
DX: Z12.11 Encounter for screening for malignant neoplasm of colon (principal); K57.30 Diverticulosis of large intestine without perforation or abscess without bleeding; K64.9 Unspecified hemorrhoids; Z88.8 Allergy status to other drugs, medicaments and biological substances
CPT/HCPCS: 45378; J2250; J2704; J3010; J7121

== ENCOUNTER 2023-12-02 17:25 | Emergency (ER) | payer BC ==
[2023-12-02] MEDS: Bacitracin Oint 1 GM U/D Packet TOP ONE (18:58)
[2023-12-02] MEDS: Lidocaine 1% 5 ML VIAL INJECT ONE (18:59)
== END 2023-12-02 19:25 | disposition home or self-care (01) ==
LOC: JP.ED 17:25
DX: S61.012A Laceration without foreign body of left thumb without damage to nail, initial encounter (principal); F17.210 Nicotine dependence, cigarettes, uncomplicated; Z88.8 Allergy status to other drugs, medicaments and biological substances; Z79.82 Long term (current) use of aspirin; Z79.899 Other long term (current) drug therapy; W11.XXXA Fall on and from ladder, initial encounter
CPT/HCPCS: 12001; 99282; 99283

== ENCOUNTER 2024-12-05 16:00 | Emergency (ER) | payer BC ==
[2024-12-05 16:25] LABS: BASOPHILS ABSOLUTE AUTO 0.07 K/uL (0.00-0.10); BASOPHILS PERCENT AUTO 1.1 % (0.1-1.3); EOSINOPHILS ABSOLUTE AUTO 0.20 K/uL (0.00-0.40); EOSINOPHILS PERCENT AUTO 3.2 % (0.0-5.4); IMMATURE GRAN ABSOLUTE AUTO 0.01 K/uL (0.00-0.23); IMMATURE GRAN PERCENT AUTO 0.2 % (0.0-0.7); LYMPHOCYTES ABSOLUTE AUTO 2.34 K/uL (0.8-3.3); LYMPHOCYTES PERCENT AUTO 37.4 % (11.4-47.7); MONOCYTES ABSOLUTE AUTO 0.59 K/uL (0.20-0.90); MONOCYTES PERCENT AUTO 9.4 % (3.3-12.6); NEUTROPHILS ABSOLUTE AUTO 3.04 K/uL (1.0-7.6); NEUTROPHILS PERCENT AUTO 48.7 % (40.0-78.1); PLATELET COUNT,PLT 221 K/uL (130-375); RED BLOOD CELL COUNT 6.03 M/uL (4.14-5.76); WHITE BLOOD CELL COUNT,WBC 6.3 K/uL (3.2-11.0)
[2024-12-05 16:37] LABS: INR 1.1
[2024-12-05 16:43] LABS: APPEARANCE,URINE CLEAR (CLEAR); GLUCOSE,URINE NEGATIVE (NEGATIVE); OCCULT BLOOD,URINE NEGATIVE (NEGATIVE)
[2024-12-05 16:43] LABS: A/G RATIO 1.5 (1.2-2.2); ALANINE AMINOTRANSFERASE,ALT 59 U/L (12-78); ASPARTATE AMNIOTRANSFERASE,AST 27 U/L (15-37); BILIRUBIN TOTAL 0.5 mg/dL (0.2-1.0); BLOOD UREA NITROGEN,BUN 15 mg/dL (7-18); CARBON DIOXIDE,CO2 29 mmol/L (21-32); CHLORIDE,CL 102 mmol/L (100-108); CREATININE 1.1 mg/dL (0.8-1.3); EST CRCL DRUG DOSING (CG) 78.35 mL/min; ESTIMATED GFR 79 mL/min (>60); GLUCOSE RANDOM 91 mg/dL (74-106); POTASSIUM,K 4.6 mmol/L (3.6-5.2); PROTEIN TOTAL,TP 7.5 g/dL (6.4-8.2); SODIUM,NA 139 mmol/L (140-148)
[2024-12-08 03:49] LABS: ANAPLASMA PHAGOCYTOPHILUM PCR Not Detected; BABESIA MICROTI BY PCR Not Detected; EHRLICHIA CHAFFEENSIS BY PCR Not Detected; EHRLICHIA EWINGII/CANIS BY PCR Not Detected; EHRLICHIA MURIS-LIKE BY PCR Not Detected
== END 2024-12-05 17:40 | disposition home or self-care (01) ==
LOC: JP.ED 16:00
DX: G51.0 Bell's palsy (principal); E78.00 Pure hypercholesterolemia, unspecified; Z88.8 Allergy status to other drugs, medicaments and biological substances; Z79.82 Long term (current) use of aspirin; Z79.899 Other long term (current) drug therapy
CPT/HCPCS: 36415; 70450; 70450-26; 80053; 81003; 85025; 85610; 86618; 87468; 87469; 87484; 87798; 93005; 93010; 99284